=== PATIENT | male | born 1955 | race African-American/Black ===

== ENCOUNTER 2020-10-25 07:38 | Outpatient (CLI) | payer MEDICARE, MEDICAID ==
--- NOTE | 2020-10-25 08:01 | RAD ---
Lateral neutral, flexion, and extension radiographs of the lumbar spine: 10/25/2020 COMPARISON: None available HISTORY: Bilateral lumbar radiculopathy FINDINGS: The neutral lateral examination demonstrates no anterolisthesis or retrolisthesis. No front al imaging is provided. Multilevel lumbar spine mild disc space narrowing and anterior osteophyte formation, most prominent at L1-2 and L5-S1. The extension imaging and the flexion imaging demonstrat es no significant anterolisthesis or retrolisthesis. There is atherosclerotic calcification of the abdominal aorta and IMPRESSION: Degenerative changes as detailed above.
== END 2020-10-25 07:39 | disposition home or self-care (01) ==
LOC: TBSIIMAG 07:38
PROVIDERS: ATTEND Neurological Surgery
DX: M51.16 Intervertebral disc disorders with radiculopathy, lumbar region (principal); M47.26 Other spondylosis with radiculopathy, lumbar region
CPT/HCPCS: 72100

== ENCOUNTER 2021-07-31 17:30 | Outpatient (CLI) | payer MEDICARE, MEDICAID | END 2021-07-31 17:31 | disposition home or self-care (01) | LOC: SLEEPLAB 17:30 | PROVIDERS: ATTEND Internal Medicine Pulmonary Disease | DX: G47.33 Obstructive sleep apnea (adult) (pediatric) (principal); R06.83 Snoring; I10 Essential (primary) hypertension; E66.9 Obesity, unspecified; Z68.32 Body mass index [BMI] 32.0-32.9, adult | CPT/HCPCS: 95806 ==

== ENCOUNTER 2021-08-26 19:30 | Outpatient (CLI) | payer MEDICARE, MEDICAID | END 2021-08-26 19:31 | disposition home or self-care (01) | LOC: SLEEPLAB 19:30 | PROVIDERS: ATTEND Internal Medicine Pulmonary Disease | DX: G47.33 Obstructive sleep apnea (adult) (pediatric) (principal); R06.83 Snoring; G47.10 Hypersomnia, unspecified; E66.9 Obesity, unspecified; Z68.32 Body mass index [BMI] 32.0-32.9, adult | CPT/HCPCS: 95811 ==

== ENCOUNTER 2022-02-13 07:43 | Outpatient (CLI) | payer MEDICARE, MEDICAID | END 2022-02-13 07:44 | disposition home or self-care (01) | LOC: TBSIIMAG 07:43 | PROVIDERS: ATTEND Neurological Surgery | DX: I63.9 Cerebral infarction, unspecified (principal); M54.2 Cervicalgia; M47.812 Spondylosis without myelopathy or radiculopathy, cervical region; M50.322 Other cervical disc degeneration at C5-C6 level; M48.02 Spinal stenosis, cervical region | CPT/HCPCS: 70551; 72050; 72141 ==

== ENCOUNTER 2025-09-20 08:17 | Outpatient (CLI) | payer OTHER ==
[2025-09-20 09:50] LABS: #Basophils 0.03 10x3/uL (0.0-0.2); #Eosinophils 0.09 10x3/uL (0.0-0.7); #Monocytes 0.59 10x3/uL (0.11-0.59); #Neutrophils 1.93 10x3/uL (1.40-6.50); %Basophils 0.6 % (0.0-1.0); %Eosinophils 1.8 % (0.0-10.0); %Lymphocytes 48.4 % (21.0-51.0); %Monocytes 11.5 % (0.0-10.0); %Neutrophils 37.5 % (42.0-75.0); Hematocrit 43.3 % (42.0-52.0); Hemoglobin 14.4 g/dL (14.0-18.0); Mean Corpuscular Hemoglobin 29.6 pg (27.0-31.0); Mean Corpuscular Volume 89.1 fL (78.0-98.0); Platelet Count 213 10x3/uL (130-400); Red Blood Cell (RBC) Count 4.86 mill/uL (4.70-6.10); White Blood Cell (WBC) Count 5.14 10x3/uL (4.8-10.8)
[2025-09-20 10:06] LABS: INR-International Normal Ratio 1.1; Prothrombin Time 13.9 sec (12.0-14.7)
[2025-09-20 10:07] LABS: PTT 25.5 sec (22.9-36.1)
[2025-09-20 10:08] LABS: Anion Gap 15 mmol/L (10-20); BUN (Urea Nitrogen) 8 mg/dL (8.4-25.7); Calc. Creatinine Clearance 0 mL/min (70-130); Calcium 9.0 mg/dL (7.8-10.44); Carbon Dioxide 22 mmol/L (23-31); Chloride 108 mmol/L (98-107); Glucose 167 mg/dL (80-115); Potassium 3.7 mmol/L (3.5-5.1); Sodium 141 mmol/L (136-145)
== END 2025-09-20 08:18 | disposition home or self-care (01) ==
LOC: LABBT 08:17
PROVIDERS: ATTEND Neurological Surgery
DX: Z01.812 Encounter for preprocedural laboratory examination (principal); M48.061 Spinal stenosis, lumbar region without neurogenic claudication
CPT/HCPCS: 80048; 85025; 85610; 85730

== ENCOUNTER → 2025-09-25 | Day surgery (SDC) | payer OTHER ==
[2025-09-20 08:45] VITALS: BMI 32.5
[~2025-09-25] MED LIST: fentaNYL PF 100 MCG/2 ML SYRINGE ONE
== END ==
LOC: SDC 07:48
PROVIDERS: ATTEND Neurological Surgery
DX: M48.061 Spinal stenosis, lumbar region without neurogenic claudication (principal); Z53.9 Procedure and treatment not carried out, unspecified reason; I10 Essential (primary) hypertension; E11.9 Type 2 diabetes mellitus without complications; E78.5 Hyperlipidemia, unspecified; Z88.8 Allergy status to other drugs, medicaments and biological substances; Z79.82 Long term (current) use of aspirin; Z79.4 Long term (current) use of insulin; Z79.84 Long term (current) use of oral hypoglycemic drugs; Z79.899 Other long term (current) drug therapy
CPT/HCPCS: 36416